=== PATIENT | male | born 1965 | race Caucasian/White ===

== ENCOUNTER 2019-01-17 11:23 | Day surgery (SDC) | payer OTHER ==
[~2019-01-17 11:23] MED LIST: CEFAZOLIN 2 GM/50 ML (PMX) 50 ML IVPB
[2019-01-17] MEDS: METOCLOPRAMIDE 10 MG INJ IV (12:31)
[2019-01-17] MEDS: CITRIC ACID/NA CITRATE 30 ML CUP PO (12:48)
[2019-01-17] MEDS: LACTATED RINGER'S 1,000 ML IV (13:05)
[2019-01-17] MEDS ORDERED: SUCCINYLCHOLINE CHLORIDE 100 MG/5 ML SYG IV ×2 (13:35→15:05)
[2019-01-17] MEDS ORDERED: ROCURONIUM 50 MG INJ ×2 (13:35→16:39)
[2019-01-17] MEDS ORDERED: CEFAZOLIN 1 GM INJ ×3 (13:35→16:39)
[2019-01-17] MEDS ORDERED: PROPOFOL 40 ML (13:35)
[2019-01-17] MEDS ORDERED: ROPIVACAINE 0.5 % 30 ML VIAL (13:36)
[2019-01-17] MEDS ORDERED: MIDAZOLAM 1 MG/ML 2 ML INJ ×2 (13:36→16:39)
[2019-01-17] MEDS ORDERED: DEXAMETHASONE 4 MG/ML 5 ML INJ ×2 (15:04→17:33)
[2019-01-17] MEDS ORDERED: ONDANSETRON 4 MG INJ ×2 (15:04→17:33)
[2019-01-17] MEDS ORDERED: KETOROLAC 30 MG INJ ×2 (15:04→17:33)
[2019-01-17] MEDS ORDERED: METOCLOPRAMIDE 10 MG INJ ×2 (15:04→17:33)
[2019-01-17] MEDS: POLYMYXIN/BACITRACIN 1L IRRIG IRR (15:24)
[2019-01-17] MEDS ORDERED: SUGAMMADEX SODIUM 200 MG/2 ML VIAL IV ×2 (15:58→17:33)
[2019-01-17] MEDS ORDERED: OXYCODONE/ACETAMINOPHEN (5/325) TAB PO (16:30)
[2019-01-17] MEDS ORDERED: hydrALAzine 20 MG INJ IV (16:30)
[2019-01-17] MEDS ORDERED: LABETALOL HCL 20MG INJ IV (16:30)
[2019-01-17] MEDS ORDERED: FENTAnyl 50 MCG/ML VIAL IV ×3 (16:30)
[2019-01-17] MEDS ORDERED: HYDROmorphONE 1 MG/5 ML IV SYRINGE IV ×3 (16:30)
[2019-01-17] MEDS ORDERED: METOCLOPRAMIDE 10 MG INJ IV (16:30)
[2019-01-17] MEDS ORDERED: EPHEDrine 25 MG/5 ML SYG IV (16:30)
[2019-01-17] MEDS ORDERED: ONDANSETRON 4 MG INJ IV (16:30)
[2019-01-17] MEDS ORDERED: ROPIVACAINE 0.2% 20 ML VIAL (16:39)
[2019-01-17] MEDS ORDERED: FENTAnyl 50 MCG/ML VIAL (16:39)
[2019-01-17] MEDS ORDERED: PROPOFOL 20 ML (16:39)
[2019-01-17] MEDS: OXYCODONE/ACETAMINOPHEN (5/325) TAB PO (17:19)
== END 2019-01-17 18:40 | disposition home or self-care (01) ==
LOC: SDS 11:23
DX: S76.111D Strain of right quadriceps muscle, fascia and tendon, subsequent encounter (principal); X58.XXXD Exposure to other specified factors, subsequent encounter
CPT/HCPCS: 27430